=== PATIENT | male | born 1980 | race Asian ===

== ENCOUNTER 2019-09-03 23:03 | Emergency (ER) | payer OTHER ==
[~2019-09-03] VITALS: Ht 175.3 cm; Wt 132.1 kg
[2019-09-03 23:03] VITALS: BP 136/80; TEMP 97.3
[2019-09-03 23:54] LABS: PLATELET COUNT 214 K/uL (142-355)
[2019-09-04 00:08] LABS: POTASSIUM 3.8 mmol/L (3.6-5.2)
[2019-09-04] MEDS ORDERED: DAKI1SOL EX (01:24)
[2019-09-04] MEDS ORDERED: BENZTROPINE2 MG PO (01:25)
[2019-09-04] MEDS ORDERED: ESCITALOPRAM5 MG PO (01:26)
[2019-09-04] MEDS ORDERED: MULTIVITAMI1 PO (01:26)
[2019-09-04] MEDS ORDERED: LIPITOR20 MG PO (01:27)
[2019-09-04] MEDS ORDERED: POLY GLYCOL3350 M1 PO (01:27)
[2019-09-04] MEDS ORDERED: DIVALPROEX250 M1 PO (01:28)
[2019-09-04] MEDS ORDERED: CLON0.5T36 PO (01:28)
[2019-09-04] MEDS ORDERED: QUETIAPINE FUM300 MG PO (01:29)
[2019-09-04] MEDS ORDERED: TRAMADOL HYDROC50 MG PO (01:30)
[2019-09-04] MEDS ORDERED: HALO10TA5 PO (01:30)
[2019-09-04] MEDS ORDERED: CORRECTOL100 MG PO (01:31)
[2019-09-04] MEDS ORDERED: ZOFRAN8 MG PO (01:32)
[2019-09-04] MEDS ORDERED: IBU600 MG PO (01:32)
[2019-09-10] MEDS ORDERED: 904272561 PO (09:35)
[2019-09-10] MEDS ORDERED: DIVALPROEX500 MG PO (09:35)
[2019-09-10] MEDS ORDERED: ESCI10TA PO (09:35)
[2019-09-10] MEDS ORDERED: CLON0.5T36 PO (09:44)
[2019-09-10] MEDS ORDERED: AMIT25TA22 PO (09:45)
[2019-09-10] MEDS ORDERED: CEPH500C20 PO (09:45)
== END 2019-09-04 00:34 | disposition other institution (70) ==
LOC: ED 23:05
PROVIDERS: Student in an Organized Health Care Education/Training Program
DX: N39.0 Urinary tract infection, site not specified (principal); F91.8 Other conduct disorders; Z04.6 Encounter for general psychiatric examination, requested by authority
CPT/HCPCS: 36415; 80053; 81000; 85027; 87077; 87086; 87088; 87186; 99285

== ENCOUNTER 2019-12-19 07:42 | Emergency (ER) | payer OTHER ==
[~2019-12-19] VITALS: Ht 167.6 cm; Wt 127.0 kg
[~2019-12-19 07:42] MED LIST: 904272561 PO; AMIT25TA22 PO; BENZTROPINE2 MG PO; CEPH500C20 PO; CLON0.5T36 PO; CORRECTOL100 MG PO; DAKI1SOL EX; DIVALPROEX250 M1 PO; DIVALPROEX500 MG PO; ESCI10TA PO; ESCITALOPRAM5 MG PO; HALO10TA5 PO; IBU600 MG PO; LIPITOR20 MG PO; MULTIVITAMI1 PO; POLY GLYCOL3350 M1 PO; QUETIAPINE FUM300 MG PO; TRAMADOL HYDROC50 MG PO; ZOFRAN8 MG PO
[2019-12-19 08:02] LABS: PLATELET COUNT 235 K/uL (142-355)
[2019-12-19 08:28] LABS: POTASSIUM 4.4 mmol/L (3.6-5.2)
[2019-12-19 09:45] VITALS: BP 119/87; TEMP 98.6
[2019-12-19] MEDS ORDERED: HALOPERIDOL2 MG PO (13:11)
[2019-12-19] MEDS ORDERED: CLON0.5T36 PO (13:12)
[2019-12-19] MEDS ORDERED: AMITRIPTYLINE H25 MG PO (13:12)
[2019-12-19] MEDS ORDERED: HALO5INJ3 IM (13:13)
== END 2019-12-19 09:45 | disposition other institution (70) ==
LOC: ED 07:42
PROVIDERS: Emergency Medicine
DX: F28 Other psychotic disorder not due to a substance or known physiological condition (principal); N39.0 Urinary tract infection, site not specified; F20.89 Other schizophrenia; Z04.6 Encounter for general psychiatric examination, requested by authority
CPT/HCPCS: 80053; 81000; 85027; 87077; 87086; 87088; 87186; 93005; 96372; 99283; 99285; J0696

== ENCOUNTER 2023-03-28 19:17 | Emergency (ER) | payer OTHER ==
[~2023-03-28] VITALS: Ht 185.4 cm; Wt 134.3 kg
[2023-03-28 19:17] VITALS: BP 140/87; TEMP 98.3
[~2023-03-28 19:17] MED LIST changes: +ACET-206 PO; +AMITRIPTYLINE H25 MG PO; +BENZ1TAB43 PO; +CIPR500T PO; -CORRECTOL100 MG PO; +DIVA250T PO; +DOK100 MG PO; +ESCITALOPRAM10 MG PO; +HALO1TAB3 PO; +HALO5INJ3 IM; +HALO5TAB10 PO; +HALOPERIDOL2 MG PO; +INSUINJ47 SC; +INSULIN LI100 UNIT/1 SC; +LANTUS100 UNIT/M SC; +MAGNSUS68 PO; +MEDIHONEY WOUND TOP; +NEURONTIN 100M100 MG PO; +NOVOLOG SC; +OLANZAPINE10 MG PO; +OLANZAPINE5 MG PO; +PROTEINE1 PO; +TOPIRAMATE25 MG PO; +VIT C/ACEROL500 MG PO; +ZINC SULFATE220 M1 PO; +ZIPR20CA PO; +ZIPR80CA PO; +ZIPRASIDONE HYD PO
[2023-03-28 20:06] LABS: PLATELET COUNT 136 K/uL (142-355)
[2023-03-28 20:13] LABS: POTASSIUM 4.3 mmol/L (3.6-5.2)
[2023-03-29] MEDS ORDERED: BENZ1TAB43 PO (07:48)
[2023-03-29] MEDS ORDERED: DAILY VITE PO (07:49)
[2023-03-29] MEDS ORDERED: LINZESS145 MCG PO (07:51)
[2023-03-29] MEDS ORDERED: ZINC SULFATE PO (07:55)
[2023-03-29] MEDS ORDERED: DIVALPROEX500 M1 PO (07:58)
[2023-03-29] MEDS ORDERED: TOPAMAX25 MG PO (08:00)
[2023-03-29] MEDS ORDERED: HALO10TA5 PO (08:02)
[2023-03-29] MEDS ORDERED: PROTEIN LIQUID PO (08:04)
[2023-04-04] MEDS ORDERED: DIVALPROEX500 MG PO (13:04)
[2023-04-04] MEDS ORDERED: DOCU100C10 PO (13:04)
[2023-04-04] MEDS ORDERED: CONGENTIN 1MG TAB PO (13:04)
[2023-04-04] MEDS ORDERED: ATOR20TA2 PO (13:04)
[2023-04-04] MEDS ORDERED: CEFT1INJ27 IM (13:04)
[2023-04-04] MEDS ORDERED: ESCI10TA PO (13:05)
[2023-04-04] MEDS ORDERED: GABA100C2 PO (13:05)
[2023-04-04] MEDS ORDERED: HALO5TAB10 PO (13:06)
[2023-04-04] MEDS ORDERED: INSU100P SC (13:06)
[2023-04-04] MEDS ORDERED: INSU-1996 SC (13:06)
[2023-04-04] MEDS ORDERED: TOPIRAMATE25 MG PO (13:07)
[2023-04-04] MEDS ORDERED: MULTTAB52 PO (13:07)
[2023-04-04] MEDS ORDERED: ONDA4TAB3 PO (13:07)
== END 2023-03-28 21:13 | disposition still patient (30) ==
LOC: ED 19:17
PROVIDERS: Internal Medicine
DX: R45.6 Violent behavior (principal); N39.0 Urinary tract infection, site not specified
CPT/HCPCS: 36415; 80053; 81000; 85027; 87077; 87086; 87088; 87186; 87635; 93005; 99283; U0003